=== PATIENT | female | born 2000 | race Caucasian/White ===

== ENCOUNTER 2020-09-04 17:32 | Emergency (ER) | payer OTHER ==
[~2020-09-04] VITALS: Ht 157.5 cm; Wt 68.0 kg
[2020-09-04 17:46] VITALS: BP 141/100
[2020-09-04] MEDS: ACETAMINOPHEN EXTRA STRENGTH 500 MG TAB PO ONE ×2 (19:09→19:20)
[2020-09-04 20:25] VITALS: BP 141/100
--- NOTE | 2020-09-04 20:25 | NUR ---
PATIENT ELOPED FROM FACILITY. DISCHARGE INSTRUCTIONS NOT GIVEN TO PATIENT. DR. MEJIA NOTIFIED.
== END 2020-09-04 20:25 | disposition home or self-care (01) ==
LOC: MED 17:32
DX: O26.891 Other specified pregnancy related conditions, first trimester (principal); R07.81 Pleurodynia; Z3A.01 Less than 8 weeks gestation of pregnancy
CPT/HCPCS: 71101; 81002; 81025; 99283